=== PATIENT | female | born 1990 | race Caucasian/White ===

== ENCOUNTER 2017-05-05 05:03 | Emergency (ER) | payer OTHER ==
[2017-05-05] MEDS ORDERED: NS 0.9% 1000 ML* 1,000 ML IV ONE (05:14)
[2017-05-05] MEDS ORDERED: Morphine INJ* 2 MG/ML 1 ML SYRINGE IV ONE (05:14)
[2017-05-05] MEDS ORDERED: Ondansetron INJ* 2 MG/ML VIAL IV ONE (05:14)
[2017-05-05 05:24] LABS: Hematocrit 37 % (35-47); Hemoglobin 12.1 g/dl (12.0-16.0); Mean Corpuscular HGB Conc 33 g/dl (31-36); Mean Corpuscular Hemoglobin 26 pg (27-31); Mean Corpuscular Volume 81 fL (80-97); Mean Platelet Volume 9 um3 (7.4-10.4); Red Blood Count 4.57 10^6/ul (4.0-5.4); Red Cell Distribution Width 15 % (10.5-15); White Blood Count 9.2 10^3/ul (3.5-10.8)
--- NOTE | 2017-05-05 06:14 | ED ---
I, Oh,Sorakel, scribed for Saturnino Carrera MD on 05/05/17 at 0519 . Abdominal Pain/Female - HPI Summary HPI Summary: This 26 y/o female presents to ED for acute onset of epigastric pain since 0430 AM this morning. Pain is constant, rated 10/10, and radiates to back. Pt took TUMS in attempt to control pain, but threw back up. PMHx includes NV in 2011 and "gallbladder issues". Pt states that pain is similar to her previous gallbladder attack. - History of Current Complaint Chief Complaint: EDAbdPain Stated Complaint: UPPER ABD PAIN Time Seen by Provider: 05/05/17 05:12 Hx Obtained From: Patient, Medical Records Onset/Duration: Sudden Onset, Still Present Timing: Constant Pain Intensity: 10 Pain Scale Used: 0-10 Numeric Location: Epigastric Radiates: Yes Radiates to: Back Character: Sharp Aggravating Factor(s): Nothing Alleviating Factor(s): Nothing Associated Signs and Symptoms: Positive: Nausea, Vomiting Allergies/Adverse Reactions: Allergies Allergy/AdvReac Type Severity Reaction Status Date / Time No Known Allergies Allergy Verified 07/09/12 20:56 PMH/Surg Hx/FS Hx/Imm Hx Endocrine/Hematology History: Denies: Hx Anticoagulant Therapy, Hx Diabetes, Hx Thyroid Disease Cardiovascular History: Reports: Other Cardiovascular Problems/Disorders - HEART CATH June 2012 Denies: Hx Hypertension, Hx Pacemaker/ICD Respiratory History: Denies: Hx Asthma, Hx Chronic Obstructive Pulmonary Disease (COPD) History: Denies: Hx Renal Disease Neurological History: Denies: Hx Dementia, Hx Seizures Psychiatric History: Denies: Hx Substance Abuse - Surgical History Surgery Procedure, Year, and Place: CHOLICYSECTOMY 2006 Hx Anesthesia Reactions: No Infectious Disease History: No Infectious Disease History: Denies: Hx Hepatitis, Hx Human Immunodeficiency Virus (HIV), Hx Shingles, Hx Tuberculosis, Traveled Outside the [place] in Last 30 Days - Family History Known Family History: Positive: Cardiac Disease - Social History Alcohol Use: None Hx Substance Use: No Substance Use Type: Reports: None Review of Systems Negative: Fever Positive: Vomiting, Nausea, Other - epigastric pain radiating to back All Other Systems Reviewed And Are Negative: Yes Physical Exam Triage Information Reviewed: Yes Vital Signs On Initial Exam: Initial Vitals Temp Pulse Resp BP Pulse Ox 97.8 F 86 24 154/86 100 05/05/17 05:07 05/05/17 05:07 05/05/17 05:07 05/05/17 05:07 05/05/17 05:07 Vital Signs Reviewed: Yes Appearance: Positive: Pain Distress - mild, Obese Skin: Positive: Warm Head/Face: Positive: Normal Head/Face Inspection Eyes: Positive: PARISA ENT: Positive: Hearing grossly normal Neck: Positive: Supple Respiratory/Lung Sounds: Positive: Clear to Auscultation Cardiovascular: Positive: RRR Abdomen Description: Positive: Soft, Other: - mild diffuse abd tenderness Bowel Sounds: Positive: Present Musculoskeletal: Positive: Strength/ROM Intact Neurological: Positive: Alert, Oriented to Person Place, Time Psychiatric: Positive: Affect/Mood Appropriate Diagnostics - Vital Signs Vital Signs Temp Pulse Resp BP Pulse Ox 05/05/17 05:07 97.8 F 86 24 154/86 100 - Laboratory Result Diagrams: 05/05/17 05:14 05/05/17 05:14 Lab Statement: Any lab studies that have been ordered have been reviewed, and results considered in the medical decision making process. - CT Ab/P CT Interpretation Completed By: Radiologist - Official reading pending at this moment. See EMR - EKG 0510 Cardiac Rate: NL EKG Rhythm: Sinus Rhythm ST Segment: Normal Abdominal Pain Fem Course/Dx - Diagnoses Provider Diagnoses: Epigastric pain Discharge - Discharge Plan Condition: Stable Disposition: HOME Discharge Disposition Comment: Signed out at shift change. CT reading pending at this moment. Prescriptions: Metoclopramide TAB* [Reglan TAB*] 10 mg PO Q6H PRN #10 tab PRN Reason: Vomiting Patient Education Materials: Epigastric Pain (ED) Referrals: Darrell RN ASSOCIATE DESIGNER,Celeste [Primary Care Provider] - 3 Days (PLEASE F/U IN 2-3 DAYS) The documentation as recorded by the Ousmane palmer Soohyun accurately reflects the service I personally performed and the decisions made by me, Saturnino Carrera MD.
[2017-05-05 07:41] LABS: Urine Bacteria Absent (Absent); Urine Bilirubin Negative (Negative); Urine Glucose Negative (Negative); Urine Nitrite Negative (Negative)
[2017-05-05 07:43] LABS: ALT 23 U/L (7-52); AST 30 U/L (13-39); Albumin 3.9 g/dL (3.2-5.2); Alkaline Phosphatase 62 U/L (34-104); Anion Gap 9 mmol/L (2-11); BUN/Creatinine Ratio 15.9 (8-20); Blood Urea Nitrogen 14 mg/dL (6-24); CO2 Carbon Dioxide 25 mmol/L (22-32); Calcium 9.3 mg/dL (8.6-10.3); Chloride 105 mmol/L (101-111); EGFR African American 98.4 (>60); EGFR Non-African American 76.5 (>60); Globulin 3.2 g/dL (2-4); Glucose 119 mg/dL (70-100); Lipase 231 U/L (11.0-82.0); Magnesium 1.8 mg/dL (1.9-2.7); Potassium 3.8 mmol/L (3.5-5.0); Sodium 139 mmol/L (133-145); Total Protein 7.1 g/dL (6.4-8.9)
[2017-05-05] MEDS ORDERED: Iohexol 300* (CONTRAST) 10 ML SDV IV ONE (07:51)
--- NOTE | 2017-05-05 08:32 | RAD ---
Indication: Abdominal pain. Contrast: Administered 150.2 ml of OMNIPAQUE 300 mg/ml. CT of the abdomen and pelvis was performed after oral and IV contrast administration. Coronal and sagittal reconstructed images were obtained. Lung bases demonstrate no pleural fluid, nodules or masses. Heart is of normal size without evidence of pericardial effusion. Liver is normal in size. No focal lesions or intrahepatic duct dilatation is noted. The patient is status post cholecystectomy. Pancreas demonstrates no mass or pancreatic duct dilatation. The common duct is not dilated. The spleen is normal in size. No adrenal masses are noted. The kidneys demonstrate symmetric nephrograms without focal lesions. No retroperitoneal lymphadenopathy is noted. Aorta and inferior vena cava are grossly unremarkable. No evidence of bowel obstruction is noted with contrast in the right colon. The uterus and ovaries are grossly unremarkable. Intrauterine device is in place. No free fluid is identified. Urinary bladder is unremarkable. No pelvic adenopathy is noted. IMPRESSION: NO ABNORMAL MASSES OR FLUID COLLECTIONS ARE IDENTIFIED.
[2017-05-05] MEDS ORDERED: Metoclopramide IV* 5 MG/ML 2 ML VIAL IV ONE (09:04)
[2017-05-05] MEDS ORDERED: Al Hydrox/Mg Hydrox/Simet LIQ* 30 ML UDC PO ONE (09:04)
[2017-05-05] MEDS ORDERED: Lidocaine 2% VISCOUS* 15 ML UDC PO ONE (09:04)
[2017-05-05 09:42] VITALS: BP 124/80
--- NOTE | 2017-05-05 17:46 | ED ---
Jennifer Jimenez Edward, scribed for Bin Vicente MD on 05/05/17 at 0727 . Progress - Progress Note Progress Note: Sign out by Dr. Debi Bullock-jack @ 08:46. Pt is still nauseous. ABD/PEL CT - NO ABNORMAL MASSES OR FLUID COLLECTIONS ARE IDENTIFIED. VITAL SIGNS: Reviewed. GENERAL: Patient is a well-developed and obese female who is lying comfortable in the stretcher. ~Patient is not in any acute respiratory distress. HEAD AND FACE: Normocephalic and atraumatic. EYES: PERRLA, EOMI x 2, No injected conjunctiva. EARS: Hearing grossly intact. Ear canals and tympanic membranes are WNL. MOUTH: Oropharynx within normal limits. NECK: Supple, trachea is midline, no adenopathy, no JVD. CHEST: Symmetric, no tenderness at palpation LUNGS: Clear to auscultation bilaterally. No wheezing or crackles. CVS: RRR, S1 and S2 present, no murmurs or gallops appreciated. ABDOMEN: Soft, epigastric tenderness. No signs of distention. Positive bowel sounds. No rebound no guarding, and no masses palpated. No abdominal bruit or pulsations. EXTREMITIES: FROM in all major joints, no edema, no cyanosis or clubbing. NEURO: Alert and oriented x 3. No acute neurological deficits. Speech is normal. SKIN: Dry and warm EKG @ 09:42 shows SINUS RHYTHM @ 67 bpm. Course/Dx - Course Course Of Treatment: The pt is signed out by to f/u ABD /PEL CT. I believe most of the pain is secondary to GERD and chronic gastritis. However, the pt has a history CO @ 24 so I added a troponin, which was 0.00 and I repeated an EKG which was point changed with no ST elevations. Pt was given Reglan and a GI cocktail for GERD and the sx subsided. At this point the pt is asymptomatic and the pt is feeling better, so the pt was d/c with f/u with PCP. She was instructed to return to the ED if she develops CP , SOB, palpitations or increased ABD pain. Pt is hemodynamically stable and A&Ox3. - Diagnoses Provider Diagnoses: Epigastric pain The documentation as recorded by the Jennifer palmer Edward accurately reflects the service I personally performed and the decisions made by me, Bin Vicente MD.
== END 2017-05-05 10:04 | disposition home or self-care (01) ==
LOC: ED 05:03
DX: R10.13 Epigastric pain (principal); I25.2 Old myocardial infarction; R11.2 Nausea with vomiting, unspecified
CPT/HCPCS: 36415; 74177; 80053; 81003; 81015; 83605; 83690; 83735; 84484; 84702; 85025; 86140; 87086; 93005; 96374; 96375; 99282; J2270; J2405; Q9967

== ENCOUNTER 2017-11-18 06:00 | Inpatient (IN) | payer OTHER ==
[~2017-11-18 06:00] MED LIST: Buffered Lidocaine 0.9% SYRIN* 5 ML/SYR SYRINGE INTRADERM ONE; DiMENhydriNATE IV* 50 MG/ML VIAL IV PUSH PRN; Famotidine IV* 10 MG/ML 2 ML (20 mg) IV ONE; Morphine INJ* 2 MG/ML 1 ML CARPUJECT IV PRN; Naloxone* 0.4 MG/ML 1 ML VIAL IV PRN; PROCHLORPERAZINE INJ 5 MG/ML 2 ML VIAL IV PRN; Scopolamine 1.5 mg* PATCH TRANSDERM PRN; fentaNYL* 50 MCG/ML 2 ML VIAL (100 MCG VIAL) IV PRN
[2017-11-18] MEDS ORDERED: ceFAZolin 2 GM in 100 MLS NS (*) BAG IVPB ONE (06:06)
[2017-11-18] MEDS ORDERED: Famotidine IV* 10 MG/ML 2 ML (20 mg) ONE (06:06)
[2017-11-18] MEDS ORDERED: Buffered Lidocaine 0.9% SYRIN* 5 ML/SYR SYRINGE ONE (06:06)
[2017-11-18] MEDS ORDERED: Heparin VIAL(*) 5000 UNITS/ML VIAL (FIVE THOUSAND) ONE (06:06)
[2017-11-18] MEDS ORDERED: Bupivacaine 0.25% SDV* 30 ML ONE ×2 (07:19→08:08)
[2017-11-18] MEDS ORDERED: KETAMINE HCL* 50 MG/ML 10 ML VIAL ONE (07:19)
[2017-11-18] MEDS ORDERED: Midazolam* 1 MG/ML 10 ML VIAL (10 MG) ONE (07:19)
[2017-11-18] MEDS ORDERED: fentaNYL* 50 MCG/ML 5 ML VIAL (250 MCG VIAL) ONE (07:19)
[2017-11-18] MEDS ORDERED: Methylene Blue 0.5 %* 50 MG/10 ML AMP IV ONE (07:19)
[2017-11-18] MEDS ORDERED: Atracurium* 10 MG/ML 10 ML VIAL ONE (07:21)
[2017-11-18] MEDS ORDERED: Diltiazem IV* 5 MG/ML 5 ML VIAL (for loading dose/IV Push) (25 MG) ONE ×2 (07:24→07:55)
[2017-11-18] MEDS ORDERED: Dexamethasone IV* 4 MG/ML 1 ML (4 MG) ONE (08:01)
[2017-11-18] MEDS ORDERED: PROCHLORPERAZINE INJ 5 MG/ML 2 ML VIAL ONE (08:01)
[2017-11-18] MEDS ORDERED: Ondansetron INJ* 2 MG/ML VIAL ONE (08:01)
[2017-11-18] MEDS ORDERED: Lidocaine 2% PF * 5 ML VIAL ONE (08:13)
[2017-11-18] MEDS ORDERED: Glycopyrrolate IV* 0.2 MG/ML 1 ML VIAL ONE (08:13)
[2017-11-18] MEDS ORDERED: Propofol* 10 MG/ML 20 ML BTL IV PUSH ONE (08:13)
[2017-11-18] MEDS ORDERED: EPHEDrine (Pressors)* 50 MG/ML VIAL ONE (08:13)
[2017-11-18] MEDS ORDERED: Neostigmine Methylsulfate* 1 MG/ML 10 ML VIAL (1 mg/ml) ONE (08:13)
[2017-11-18] MEDS ORDERED: Morphine INJ* 10 MG/ML 1 ML CARPUJECT ONE (08:46)
[2017-11-18] MEDS ORDERED: diPHENhydraMINE IV* 50 MG/ML 1 ml VIAL (BENADRYL) SLOW PUSH PRN (10:17)
[2017-11-18] MEDS ORDERED: HYDROmorphone INJ* 2 MG/ML CARPUJECT SYRINGE IV PRN (10:17)
[2017-11-18] MEDS ORDERED: Ondansetron INJ* 2 MG/ML VIAL IV PRN (10:17)
[2017-11-18] MEDS ORDERED: fentaNYL* 50 MCG/ML 2 ML VIAL (100 MCG VIAL) ONE (10:18)
[2017-11-18] MEDS ORDERED: Scopolamine 1.5 mg* PATCH ONE (10:19)
[2017-11-18] MEDS ORDERED: DiMENhydriNATE IV* 50 MG/ML VIAL ONE (10:19)
--- NOTE | 2017-11-18 10:30 | OP ---
Operative Report - Blank - Operative Report Date of Operation: 11/18/17 Note: Pre-op: Morbid obesity Post-op: Same Procedure: Laparoscopic Frankie-en-Y gastric bypass Surgeon: Dr. Read [place]: AJAY Falk PA-S Anesthesia: GETA EBL: Minimal Fluids: LR 2,500 cc Catheter: Shipman to gravity Drains: None Specimen: None Findings: See dictated op note
[2017-11-18] MEDS ORDERED: HYDROmorphone INJ* 1 MG/ML CARPUJECT SYRINGE ONE (11:48)
[2017-11-18] MEDS: Ketorolac INJ* 30 MG/ML 1 ML VIAL IV PRN ×2 (13:46→19:49)
[2017-11-18] MEDS: Morphine INJ* 4 MG/ML 1 ML SYRINGE (NEW SYRINGE VERSION) IV PRN (18:27)
[2017-11-18] MEDS: Heparin VIAL(*) 5000 UNITS/ML VIAL (FIVE THOUSAND) SUBCUT SCH (22:04)
[2017-11-18] MEDS: Famotidine IV* 10 MG/ML 2 ML (20 mg) IV SLOW PU SCH (22:06)
--- NOTE | 2017-11-18 23:39 | CONS ---
CC: VINAY Aviles; Dr. Andres; Dr. Keyes; Dr. Hill; Dr. Read * CONSULTATION REPORT: DATE OF CONSULT: 11/18/17 PRIMARY CARE PROVIDER: VINAY Aviles PHYSICIAN REQUESTING THE CONSULT: Dr. Hill from Anesthesia. REASON FOR CONSULT: The consult is requested due to history of Prinzmetal angina. CHIEF COMPLAINT: Abdominal pain. HISTORY OF PRESENT ILLNESS: Yasmine Barkley is a 27-year-old female, who just underwent Frankie-en-Y gastric bypass by Dr. Read. She did very well postoperatively. The surgery was laparoscopic. The patient had been walking to the bathroom without any problems or complaints of mild abdominal pain. The patient has a history of Prinzmetal angina with an admission in 2011 that resulted in positive troponins and EKG changes and cardiac catheterization did show likely vasospasm and otherwise normal coronaries. Consultation was requested from Anesthesia due to patient's history of heart disease. PAST MEDICAL HISTORY: 1. History of obesity with BMI of 44. 2. History of in 2011, non-ST elevation MT with EKG changes, troponin of 0.65, echocardiogram with EF of 45% and anterior hypokinesis and possibility of vasospasm noted on cardiac catheterization, otherwise normal. 3. History of migraine headaches. 4. History of hypothyroidism. 5. History of gastroesophageal reflux disease. 6. Status post cholecystectomy in 2006. 7. History of anxiety. HOME MEDICATIONS: Include: 1. Diltiazem 120 mg daily. 2. Vitamin D 50,000 units every Thursday. 3. Zoloft 100 mg daily. 4. Multivitamin 1 tablet daily. 5. Protonix 40 mg daily. 6. Levothyroxine 75 mcg daily. 7. Iron supplement 2 tablets daily. 8. Aspirin 81 mg daily. ALLERGIES: Nitro patch causes headache, which I believe is an anticipated side effect and not an allergy. FAMILY HISTORY: Mother with history of carotid disease. Father, healthy. SOCIAL HISTORY: The patient is single. She is a masseuse by profession. As her surrogate, she lists her boyfriend, Behzad Khan. REVIEW OF SYSTEMS: The patient complains of mild abdominal pain postoperatively. All the remaining 12 systems were reviewed with the patient and were otherwise negative. PHYSICAL EXAM: Blood pressure of 104/50, heart rate of 65 and regular, respiratory rate16, oxygen saturation 96% on room air, temperature 98.3. General: The patient is a very pleasant 27-year-old female, who is in no acute distress. Awake, alert, oriented x3. HEENT: Head: Atraumatic, normocephalic. Eyes: Pupils are equal, reactive to light and accommodation. Oropharynx: Clear. Mucosa moist. Neck: Supple. No JVD. No bruits bilaterally. Cardiovascular: Regular rate and rhythm. No murmurs. Respiratory: Clear to auscultation bilaterally. Abdomen: Soft, minimally tender yodit- incisions site. The patient has several small laparoscopic incision sites that are Steri-Strip'd with no evidence of dehiscence noted. The abdomen is otherwise soft. Bowel sounds are hypoactive in all 4 quadrants. Lower extremities: There is no edema. +2 pulses bilaterally. There is no evidence of clubbing or cyanosis. On evaluation of skin as mentioned above abdominal incision site with no dehiscence, covered with Steri-Strips. LABORATORY DATA: Not obtained today. ASSESSMENT AND PLAN: 1. In regards to the patient being status post laparoscopic Frankie-en-Y procedure , the patient appears to be doing very well. Postoperative management deferred to weatherization specialist. 2. In regards to the patient's history of Prinzmetal angina, the patient's Cardizem is recommended to be continued. Aspirin to be restarted whenever Surgery deems it appropriate and safe. 3. In regards to the patient's depression and anxiety, the patient's sertraline is going to be restarted tomorrow. 4. In regards to the patient's hypothyroidism, Synthroid is going to be restarted tomorrow. At discharge, the patient is recommended to follow up with the bariatric center specialist in regards to vitamin supplementation and nutrition management after gastric bypass surgery. Thank you very much for allowing our group to see your patient in consultation. We will follow. [id number]/[facility] #: [id number] ENMANUEL
[2017-11-19] MEDS: Ketorolac INJ* 30 MG/ML 1 ML VIAL IV PRN ×3 (03:40→23:54)
[2017-11-19] MEDS: Heparin VIAL(*) 5000 UNITS/ML VIAL (FIVE THOUSAND) SUBCUT SCH ×3 (05:53→22:30)
[2017-11-19] MEDS ORDERED: Influenza VAC *QUAD* 2017-18* 0.5 ML SYRINGE IM ONE (09:00)
[2017-11-19] MEDS ORDERED: Diltiazem CD CAP* 180 MG PO SCH (09:00)
[2017-11-19] MEDS: Famotidine IV* 10 MG/ML 2 ML (20 mg) IV SLOW PU SCH ×2 (09:39→20:02)
--- NOTE | 2017-11-19 09:41 | PN ---
Progress Note - Progress Note Date of Service: 11/19/17 SOAP: Subjective: Pt seen and examined. Left side abdo pain. no N/V, pos flatus Objective: af vss uo good lungs clear abdo: soft/ obese/ tender at incisions no calf tenderness UGi wnl Assessment: POD 1 RYGB Plan: diet d/c medina d/c planning
--- NOTE | 2017-11-19 09:48 | RAD ---
INDICATION: Recent bariatric surgery COMPARISON: None TECHNIQUE: Gastrografin was administered per os and digital fluoroscopy of the operative site was performed. 42 seconds Of fluoroscopy was utilized. Esophagus: The esophagus is normal in caliber and motility. There are no mucosal irregularities GE junction: The GE junction is normally positioned. There is no hiatal hernia. There is no gastroesophageal reflux Stomach: There is prompt filling the gastric remnant without evidence of obstruction or extravasation. Other: Clips gallbladder fossa. IMPRESSION: NORMAL POSTOPERATIVE APPEARANCE POST BARIATRIC SURGERY. No findings of obstruction or extravasation CPT II Codes: 6045F PQRS (Fluoro time doc)
[2017-11-19] MEDS: Levothyroxine TAB* 75 MCG TAB PO SCH (11:11)
[2017-11-19] MEDS: Sertraline* 100 MG TAB PO SCH (11:11)
[2017-11-19] MEDS: D5W 1/2 NS KCl 20 Meq 1000 ML* 1,000 ML IV SCH ×2 (11:13→19:06)
[2017-11-19] MEDS ORDERED: Diltiazem CD CAP* 120 MG PO ONE (12:01)
--- NOTE | 2017-11-19 12:55 | OP ---
CC: [facility]; Celeste RamírezVINAY * DATE OF OPERATION: 11/18/17 - ROOM #338 DATE OF : 86 SURGEON: Tobin Read MD CHEMIST HELPER: AJAY Knapp ANESTHESIOLOGIST: Dr. Hill. ANESTHESIA: General anesthesia. PRE-OP DIAGNOSES: 1. Clinically severe obesity. 2. Coronary artery disease. 3. Gastroesophageal reflux disease. POST-OP DIAGNOSES: 1. Clinically severe obesity. 2. Coronary artery disease. 3. Gastroesophageal reflux disease. OPERATIVE PROCEDURE: Laparoscopic Frankie-en-Y gastric bypass. ESTIMATED BLOOD LOSS: Minimal blood loss. FLUIDS: 2500 cc of crystalloid fluid given. CATHETER: Shipman to gravity. DRAINS: None. DESCRIPTION OF PROCEDURE: The patient was identified in the preoperative area. Consent was signed. Case discussed with her. She understood the risks, benefits, and alternatives and agreed to proceed with surgical intervention. She was brought to the operating room and placed on the operating table in supine position. Preoperative antibiotics were given. Sequential devices were placed on bilateral lower extremities. General anesthesia was induced. Shipman catheter was inserted. The patient's abdomen was prepped and draped in the standard surgical fashion and time-out was performed. Folds of the umbilicus were elevated anteriorly and a Veress needle was inserted into the abdominal cavity, which was then allowed to insufflate to a pressure of 15 mmHg. The patient tolerated the insufflation well. [place] between the xiphoid and the umbilicus just left of midline, a 12-mm trocar was inserted. Laparoscope was inserted through this and there was no evidence of injury from the trocar insertion or from the Veress needle, which was then removed. Additional trocars were then placed in the following position. A 12-mm and a 5- mm in the left upper quadrant and 12-mm and 5-mm in the right upper quadrant. Review of the abdomen showed normal-appearing liver, small bowel appeared intact. Next, the omentum was reflected cephalad. The transverse colon identified and the ligament of Treitz again identified. Approximately 45 cm was counted off from the ligament of Treitz. The bowel was transected at this site and the biliopancreatic limb was opened up with a cautery to make an enterotomy at this site. Next, approximately 85-cm was counted off from the Frankie limb, another enterotomy was made at this site and the jejunojejunostomy was created with 60- mm lord SILVIANO stapling device. The common defect was reapproximated with 2-0 silk sutures in a [id number] fashion and the mesenteric defect was similarly closed. The bowel appeared intact without evidence of ischemia. The small bowel Frankie limb was able to be brought up to the upper quadrant with ease. Next, the table was placed in a steep reverse Trendelenburg. Annalisa retractor was inserted and the liver was retracted anteriorly into the right. This exposed the gastroesophageal fat pad. There appeared to be no hiatal hernia. The fat pad was grasped and retracted towards the right lower quadrant and blunt dissection was carried out to expose the left alex. Next, between the second and third crossing vessel on lesser curvature, a retrogastric tunnel was made. A 45-mm lord SILVIANO stapling device was fired to this and the stomach pouch was completed with additional 60-mm lord loaded SILVIANO stapler and then a 45. The pouch appeared in appropriate size. Next, the Loreta tube was inserted and had passed easily to the distal stomach pouch. Next, a small bowel was brought up in apposition to this. There was no tension. Stay sutures using 2-0 silk sutures were placed. Next, a gastrotomy was made over the Loreta tube and an enterotomy was made. Two were made with 30- mm lord SILVIANO stapling device, stapled almost the full distance of the stapler. The enterotomy appeared to be larger and we reapproximated the defect with interrupted 3-0 silk sutures. Next, the Loreta tube was passed through the anastomosis and we clamped the proximal Frankie limb. We were able to inject methylene blue dye and test the anastomosis. It was unclear if there was a small change in the color at the gauze that was placed behind the anastomosis. It was not quite blue, but not quite bloody either. For this reason, we did place a U stitch at the most inferior aspect of the suture line incorporating part of the staple line as well. Methylene blue dye test was performed again in a similar fashion and there was no evidence of blue dye, did place an additional U stitch on the main portion of the suture line. We were able to rotate the gastrojejunostomy anastomosis and we saw no abnormalities. Hemostasis was excellent. The abdomen was allowed to collapse. Trocars removed under direct vision along with the Annalisa retractor and all 6 skin incisions were reapproximated with 4-0 Monocryl subcuticular sutures followed by sterile dressing. [id number]/[facility] #: [id number] [facility]
[2017-11-19] MEDS: Diltiazem TAB* 30 MG PO SCH ×2 (14:07→17:25)
[2017-11-19] MEDS ORDERED: oxyCODONE/Acetamin 5/325 MG* TAB PO PRN (14:30)
[2017-11-19] MEDS ORDERED: oxyCODONE/Acetamin 5/325 MG* TAB ONE (15:06)
--- NOTE | 2017-11-19 16:33 | PN ---
Subjective Date of Service: 11/19/17 Interval History: pt c/o mild abd pain , tolerating diet, had a BM Objective Active Medications: Diltiazem HCl (Cardizem Tab*) 30 mg PO Q6HR [facility] Last Admin: 11/19/17 14:07 Dose: 30 mg Diphenhydramine HCl (Benadryl Iv*) 25 mg SLOW PUSH Q6H PRN PRN Reason: ITCHING Famotidine (Pepcid Iv*) 20 mg IV SLOW PU BID [facility] Last Admin: 11/19/17 09:39 Dose: 20 mg Heparin Sodium (Porcine) (Heparin Vial(*)) 5,000 units SUBCUT Q8HR [facility] Last Admin: 11/19/17 13:14 Dose: 5,000 units Potassium Chloride/Dextrose (D5w 1/2 Ns Kcl 20 Meq 1000 Ml*) 1,000 mls @ 125 mls/hr IV PER RATE [facility] Last Admin: 11/19/17 11:13 Dose: 125 mls/hr Ketorolac Tromethamine (Toradol Inj*) 30 mg IV Q6H PRN PRN Reason: PAIN Stop: 11/20/17 10:25 Last Admin: 11/19/17 09:39 Dose: 30 mg Levothyroxine Sodium (Synthroid Tab*) 75 mcg PO DAILY@0600 [facility] Last Admin: 11/19/17 11:11 Dose: 75 mcg Morphine Sulfate (Morphine Inj (Syringe)*) 3 mg IV Q4H PRN PRN Reason: PAIN Last Admin: 11/18/17 18:27 Dose: 3 mg Ondansetron HCl (Zofran Inj*) 4 mg IV Q6H PRN PRN Reason: NAUSEA/VOMITING Oxycodone/Acetaminophen (Percocet 5/325 Tab*) 1 tab PO Q4H PRN PRN Reason: PAIN Pharmacy Profile Note (Scopolamine Patch Remove*) 1 note PATCH OFF Q72H ONE Stop: 11/21/17 05:53 Sertraline HCl (Zoloft*) 100 mg PO QAM [facility] Last Admin: 11/19/17 11:11 Dose: 100 mg Vital Signs - 8 hr 11/19/17 11/19/17 11/19/17 11:21 13:30 15:08 Temperature 98.9 F Pulse Rate 51 Respiratory 16 18 Rate Blood Pressure 134/59 (mmHg) O2 Sat by Pulse 100 96 Oximetry Oxygen Devices in Use Now: None Appearance: 27 yo f in nAD, aAOx3 Eyes: No Scleral Icterus, PERRLA Ears/Nose/Mouth/Throat: NL Teeth, Lips, Gums, Mucous Membranes Moist Neck: NL Appearance and Movements; NL JVP, Trachea Midline Respiratory: Symmetrical Chest Expansion and Respiratory Effort, Clear to Auscultation Cardiovascular: NL Sounds; No Murmurs; No JVD, RRR Abdominal: - - mild tenderness in epigastrium, BS+. Incisions [id number]-[id number] dehiscence noted Lymphatic: No Cervical Adenopathy Extremities: No Edema, No Clubbing, Cyanosis Skin: No Rash or Ulcers, No Nodules or Sclerosis Neurological: Alert and Oriented x 3, NL Muscle Strength and Tone Assess/Plan/Problems-Billing Assessment: 27 yo f with h/o obesity, hypothyroidism, [place] due to vasospasm s/p gastric bypass surgery - Patient Problems (1) Gastric bypass status for obesity Comment: As per Dr. Read (2) H/O Prinzmetal angina Comment: placed on short acting Cardizem due to problems with capsule ingestion post op. will start Cardizem CD in aM (3) Hypothyroidism Comment: cont Synthroid (4) DVT prophylaxis Comment: ambulation Status and Disposition: medicine consult, will follow
[2017-11-20] MEDS: D5W 1/2 NS KCl 20 Meq 1000 ML* 1,000 ML IV SCH ×2 (03:23→11:36)
[2017-11-20] MEDS: Heparin VIAL(*) 5000 UNITS/ML VIAL (FIVE THOUSAND) SUBCUT SCH (05:24)
[2017-11-20] MEDS: Levothyroxine TAB* 75 MCG TAB PO SCH (05:24)
[2017-11-20] MEDS: Ketorolac INJ* 30 MG/ML 1 ML VIAL IV PRN (07:24)
[2017-11-20] MEDS ORDERED: Diltiazem CD CAP* 120 MG PO SCH ×2 (09:00)
[2017-11-20] MEDS: Sertraline* 100 MG TAB PO SCH (09:28)
[2017-11-20] MEDS: Famotidine IV* 10 MG/ML 2 ML (20 mg) IV SLOW PU SCH (09:29)
[2017-11-20] MEDS: Morphine INJ* 4 MG/ML 1 ML SYRINGE (NEW SYRINGE VERSION) IV PRN (10:20)
[2017-11-20] MEDS ORDERED: HYDROcodone/ACET. 7.5/325 LIQ* 15 ML UDC PO PRN (10:55)
[2017-11-20 12:31] VITALS: BP 101/61
[2017-11-21] MEDS ORDERED: Scopolamine PATCH Remove* 1 NOTE MISC PATCH OFF ONE (05:52)
--- NOTE | 2017-11-21 12:18 | DS ---
CC: Celeste Ramírez NP; [facility]; [facility]. DISCHARGE SUMMARY: DATE OF ADMISSION: 11/18/17. DATE OF DISCHARGE: 11/20/17. HISTORY OF PRESENT ILLNESS: Mr. Barkley is a 27-year-old female who was worked up as an outpatient with clinically severe obesity and presented on the same day of surgery, underwent laparoscopic Frankie- en-Y gastric bypass procedure. Please see operative report for additional details. In the postoperative period, the patient was transferred to the PACU and on to the floor. By postope rative day 1, the patient underwent an upper GI study which was reviewed and the patient was started on bariatric diet. She was treated with pain control. By postoperative day 2, the patient was disch arged home for planned followup in the office at [facility] for Metabolic and Bariatric Surgery on Thursday next week. She will change her Cardizem to a 120 mg tablet daily. She will continue her oth er preoperative medications. The patient's questions were answered and outlined the details of his d ischarge. On the day of discharge, the patient was evaluated. She was afebrile. Vital signs are stable. Aler t and oriented x3, in no apparent distress. Head, ears, eyes, nose and throat: Normocephalic, atrau matic. Sclerae anicteric. Mucous membranes are moist. Lungs: Clear to auscultation bilaterally. Abdomen: Soft, nondistended. Tender in the epigastrium without rebound. Dressing is intact without cellulitis. Mild ecchymosis in the lower abdomen from heparin shots and no calf tenderness. Plan as above. Discharged home. Follow up in the office in 3 days. [id number]/[facility] #: [id number]
== END 2017-11-20 13:53 | disposition home or self-care (01) | DRG 403 ==
LOC: AA 06:00 → SSU 11:35
PROVIDERS: ADMIT Surgery; ATTEND Surgery
PROC: 0D160ZA Bypass Stomach to Jejunum, Open Approach (ICD-10-PCS; principal; 2017-11-18 07:45)
DX: E66.01 Morbid (severe) obesity due to excess calories (principal); I20.1 Angina pectoris with documented spasm; F41.9 Anxiety disorder, unspecified; G43.909 Migraine, unspecified, not intractable, without status migrainosus; F32.9 Major depressive disorder, single episode, unspecified; K21.9 Gastro-esophageal reflux disease without esophagitis; E03.9 Hypothyroidism, unspecified; Z82.49 Family history of ischemic heart disease and other diseases of the circulatory system; Z83.49 Family history of other endocrine, nutritional and metabolic diseases; Z72.89 Other problems related to lifestyle; Z68.42 Body mass index [BMI] 45.0-49.9, adult; I25.2 Old myocardial infarction; Z88.8 Allergy status to other drugs, medicaments and biological substances; Z90.49 Acquired absence of other specified parts of digestive tract
CPT/HCPCS: 43644; 74246; 81025; 90686; 94760; A9270-GY; C1776; J0780; J1100; J1170; J1200; J1240; J1644; J1885; J2250; J2270; J2405; J2704; J2710; J3010

== ENCOUNTER 2019-08-23 18:42 | Emergency (ER) | payer OTHER ==
[2019-08-23 18:48] VITALS: BP 113/65
== END 2019-08-23 22:06 | disposition left against medical advice (07) ==
LOC: ED 18:42
DX: R10.9 Unspecified abdominal pain (principal); Z53.21 Procedure and treatment not carried out due to patient leaving prior to being seen by health care provider